=== PATIENT | female | born 1965 | race Caucasian/White ===

== ENCOUNTER → 2016-11-16 | Outpatient (CLI) | payer OTHER ==
--- NOTE | 2016-11-17 08:50 | Diagnostic Imaging Report ---
Bilateral screening mammogram The current study was also evaluated with a Computer Aided Detection (CAD) system. Indication: Screening. No current complaints stated on the questionnaire. COMPARISON: 04/06/16 FINDINGS: The breasts are composed of heterogenously dense parenchyma which may decrease mammographic sensitivity. There are asymmetries along the lateral aspect of the left cc projection, oval in shape and one measures 9 mm and one measures 6 mm in size. No definitive correlate on the MLO view. The right breast is stable. IMPRESSION: Asymmetries along the lateral aspect of the left breast more prominent compared to the prior studies. On the ultrasound of 10/24/2015 cluster of cysts were seen in the outer aspect of the left breast which could correlate to this abnormality. Examination with ultrasound at this point is recommended to reevaluate. BI-RADS 0. ACR BI-RADS Category 0: Incomplete. (Needs additional imaging evaluation). Result letter will be mailed to the patient. Note: At least 10% of breast cancer is not imaged by mammography. Dictated by: Dictated on workstation # [id number]
== END ==
LOC: RAD 11:21
PROVIDERS: ATTEND Family Medicine
DX: Z12.31 Encounter for screening mammogram for malignant neoplasm of breast (principal); N64.89 Other specified disorders of breast
CPT/HCPCS: 77067

== ENCOUNTER → 2016-12-02 | Outpatient (CLI) | payer OTHER ==
--- NOTE | 2016-12-02 13:41 | Diagnostic Imaging Report ---
EXAMINATION: Left breast ultrasound. INDICATION: Lateral left breast asymmetries. FINDINGS: The outer aspect of the left breast was scanned with simple and minimally complicated cysts seen. The predominant lesion is at the 2 o'clock zone 4 cm from the nipple measuring 8 x 6 x 8 mm with no suspicious lesion seen. When correlated with the mammographic findings, it appears to match the areas of abnormalities seen. No suspicious mass. IMPRESSION: Simple and minimally complicated cysts appear to explain the asymmetries seen in the outer aspect of the left breast. Annual screening mammography is recommended. ACR BI-RADS Category 2: Benign findings. Dictated by: Dictated on workstation # [id number]
== END ==
LOC: RAD 12:25
PROVIDERS: ATTEND Family Medicine
DX: N60.12 Diffuse cystic mastopathy of left breast (principal)
CPT/HCPCS: 76642

== ENCOUNTER → 2017-12-27 | Outpatient (CLI) | payer OTHER ==
--- NOTE | 2017-12-27 09:09 | Diagnostic Imaging Report ---
Indication: Routine screening. Comparison is made with prior mammogram from 11/16/2016 and 10/02/2015. 2-D and 3-D bilateral screening mammography was performed with CAD. Both breasts remain heterogeneously dense, limiting the sensitivity of mammography. The parenchymal pattern is stable. No dominant mass or malignant-appearing micro-calcifications are seen. The axilla are unremarkable. Impression: BI-RADS category one No mammographic features suspicious for malignancy are identified. ACR BI-RADS Category 1: Negative. Result letter will be mailed to the patient. Note: At least 10% of breast cancer is not imaged by mammography. Dictated by: Dictated on workstation # [id number]
== END ==
LOC: RAD 07:24
PROVIDERS: ATTEND Family Medicine
DX: Z12.31 Encounter for screening mammogram for malignant neoplasm of breast (principal)
CPT/HCPCS: 77067

== ENCOUNTER → 2019-09-18 | Outpatient (CLI) | payer OTHER ==
--- NOTE | 2019-09-18 10:47 | Diagnostic Imaging Report ---
INDICATION: Postmenopausal bleeding. TECHNIQUE: Pelvic sonography was performed with transabdominal and transvaginal views. FINDINGS: The uterus measures 7.3 x 3.3 x 3.7 cm. There is no myometrial mass. The uterus is somewhat anteverted. The endometrium measures 3 mm in thickness but does contain some fluid-like density, compatible with blood. Neither ovary could be visualized. There is no free fluid. IMPRESSION: Normal sized uterus with no myometrial mass. The endometrium does not appear appreciably thickened but does contain some linear fluid density areas which may represent blood given the patient's history. Neither ovary could be visualized. There is no free fluid. Dictated by: Dictated on workstation # [id number]
== END ==
LOC: RAD 08:52
PROVIDERS: ATTEND Family Medicine
DX: N93.9 Abnormal uterine and vaginal bleeding, unspecified (principal)
CPT/HCPCS: 76830; 76856

== ENCOUNTER → 2019-10-16 | Outpatient (CLI) | payer OTHER ==
--- NOTE | 2019-10-16 13:34 | Diagnostic Imaging Report ---
INDICATION: Pain in the outer left breast. COMPARISON: 01/02/2019 and 12/27/2017. TECHNIQUE: Unilateral left 2D and 3D diagnostic mammography was performed with CAD. FINDINGS: The left breast remains heterogeneously dense, limiting the sensitivity of mammography. No new mass or malignant appearing microcalcifications are seen. The left axilla is unremarkable. IMPRESSION: No mammographic features suspicious for malignancy are identified. Even so, directed sonographic interrogation of the area of pain in the outer left breast is recommended and will be performed today. ACR BI-RADS Category 0: Incomplete. (Needs additional imaging evaluation). Result letter will be mailed to the patient. Note: At least 10% of breast cancer is not imaged by mammography. Dictated by: Dictated on workstation # [id number]
--- NOTE | 2019-10-16 14:22 | Diagnostic Imaging Report ---
INDICATION: Left breast pain. Correlation is made with diagnostic mammogram earlier same day. Sonographic interrogation of the area of pain in the outer left breast was performed. This corresponds to the 3:00 location. No sonographic abnormality is detected. No solid or cystic mass is detected. IMPRESSION: BI-RADS Category 1 No sonographic abnormality is detected. ACR BI-RADS Category 1: Negative. Dictated by: Dictated on workstation # [id number]
== END ==
LOC: RAD 12:50
PROVIDERS: ATTEND Family Medicine
DX: N64.4 Mastodynia (principal)
CPT/HCPCS: 76642

== ENCOUNTER → 2020-02-12 | Outpatient (CLI) | payer OTHER ==
--- NOTE | 2020-02-12 12:23 | Diagnostic Imaging Report ---
INDICATION: Routine screening. COMPARISON: 01/02/2019 and 12/27/2017. TECHNIQUE: 2D and 3D bilateral screening mammography was performed with CAD. FINDINGS: Both breasts are heterogeneously dense, limiting the sensitivity of mammography. The parenchymal pattern is stable. No mass or malignant appearing microcalcifications are seen. The axillae are unremarkable. IMPRESSION: No mammographic features suspicious for malignancy are identified. ACR BI-RADS Category 1: Negative. Result letter will be mailed to the patient. Note: At least 10% of breast cancer is not imaged by mammography. Dictated by: Dictated on workstation # [id number]
== END ==
LOC: RAD 11:15
PROVIDERS: ATTEND Family Medicine
DX: Z12.31 Encounter for screening mammogram for malignant neoplasm of breast (principal)
CPT/HCPCS: 77063; 77067

== ENCOUNTER → 2021-03-10 | Outpatient (CLI) | payer OTHER ==
--- NOTE | 2021-03-10 19:40 | Diagnostic Imaging Report ---
INDICATION: Routine screening. COMPARISON is made with prior mammograms from 02/12/2020 and 10/17/2018. 2-D and 3-D bilateral screening mammography was performed with CAD. Both breasts are heterogeneously dense, limiting the sensitivity of mammography. The parenchymal pattern is stable. No mass or malignant-appearing microcalcifications are seen. Axillae are unremarkable. IMPRESSION: BI-RADS Category 1 No mammographic features suspicious for malignancy are identified. ACR BI-RADS Category 1: Negative. Result letter will be mailed to the patient. Note: At least 10% of breast cancer is not imaged by mammography. Dictated by: Dictated on workstation # [id number]
== END ==
LOC: RAD 15:00
PROVIDERS: ATTEND Family Medicine
DX: Z12.31 Encounter for screening mammogram for malignant neoplasm of breast (principal)
CPT/HCPCS: 77063; 77067

== ENCOUNTER → 2022-03-13 | Outpatient (CLI) | payer OTHER ==
--- NOTE | 2022-03-13 11:39 | Diagnostic Imaging Report ---
Indication: Routine screening. Comparison is made with prior mammograms from 03/10/2021 and 02/12/2020. 2-D and 3-D bilateral screening mammography was performed with CAD. Both breasts are heterogeneously dense, limiting the sensitivity of mammography. No mass or malignant-appearing microcalcifications are seen. Axillae are unremarkable. IMPRESSION: BI-RADS Category 1 No mammographic features suspicious for malignancy are identified. ACR BI-RADS Category 1: Negative. Result letter will be mailed to the patient. Note: At least 10% of breast cancer is not imaged by mammography. Dictated by: Dictated on workstation # [id number]
== END ==
LOC: RAD 10:01
PROVIDERS: ATTEND Family Medicine
DX: Z12.31 Encounter for screening mammogram for malignant neoplasm of breast (principal)
CPT/HCPCS: 77063; 77067

== ENCOUNTER 2023-01-18 07:05 | Emergency (ER) | payer OTHER ==
[~2023-01-18] VITALS: Ht 157 cm; Wt 61.0 kg
--- NOTE | 2023-01-18 07:29 | ED Chest Pain ---
General Chief Complaint: Chest Pain Stated Complaint: CHEST PAINS Nursing Triage Note: ARRIVED VIA AMB FROM HOME WITH COMPLAINTS OF ON AND OFF CHEST PAIN WITH BURPING X2 WEEKS. THIS MORNING THE PAIN WAS BETWEEN HER SHOULDER BLADES ET WRAPPING AROUND TO LEFT CHEST. Source: patient Exam Limitations: no limitations History of Present Illness Date Seen by Provider: Jan 18, 2023 Time Seen by Provider: 07:13 Initial Comments Here with report of left-sided chest pain that has been on and off over the last 2 weeks. States that it was worse this morning. Went to her shoulder. She has been using intermittent Prilosec and has taken some Tylenol with some relief. No significant family history for cardiac disease. Patient does not smoke. She is active as a email marketing manager. Does not remember any specific injury. States that her reflux has been worse recently and she has been using the Prilosec but has not used that her couple days. Denies breathing problems, fever, chills or other constitutional symptoms. Timing/Duration: changing over time, intermittent, other (6) Severity/Quality: moderate, aching, burning Location: shoulder, other (Chest) Radiation: shoulders, back Activities at Onset: none Prior CP/Workup: no prior cardiac workup Modifying Factors: improves with antacids, improves with rest ASA po JUNIOR PROGRAMMER ANALYST: No NTG SL JUNIOR PROGRAMMER ANALYST: No Associated Symptoms: No abdominal pain; back pain; No diaphoresis, No fatigue, No fever/chills; heartburn; No nausea/vomiting, No shortness of breath, No weakness Allergies and Home Medications Allergies Coded Allergies: No Known Drug Allergies (Unverified , 09/17/10) Patient Home Medication List Home Medication List Reviewed: Yes Review of Systems Review of Systems Constitutional: see HPI EENTM: No Symptoms Reported Respiratory: Denies Cough, Denies Shortness of Air Cardiovascular: Chest Pain; Denies Edema Gastrointestinal: See HPI Genitourinary: No Symptoms Reported Musculoskeletal: back pain; No neck pain Skin: no symptoms reported Past Hxnmgvb-Yfrywt-Vshihe Hx Patient Social History Tobacco Use?: No Substance use?: No Alcohol Use?: No Past Medical History Surgeries: Yes Gallbladder Respiratory: No Cardiac: No Neurological: No Gastrointestinal: Yes Gastroesophageal Reflux Musculoskeletal: No Family Medical History Reviewed Nursing Family Hx Cancer, Stroke Physical Exam Vital Signs Vital Signs - First Documented 01/18/23 07:10 Temp 36.2 Pulse 62 Resp 16 B/P (MAP) 164/81 (108) Pulse Ox 97 O2 Delivery Room Air Capillary Refill : Less Than 3 Seconds Height, Weight, BMI Height: 5'2.00" Weight: 140lbs. oz. 63.419435bn; 24.00 BMI Method: General Appearance: No Apparent Distress, WD/WN HEENT: PERRL/EOMI, Pharynx Normal Neck: Non Tender, Supple Respiratory: Lungs Clear, Normal Breath Sounds Cardiovascular: Regular Rate, Rhythm, No Edema, No Murmur Gastrointestinal: Non Tender, Soft Extremity: Normal Range of Motion, Non Tender Neurologic/Psychiatric: Alert, Oriented x3 Skin: Normal Color, Warm/Dry Progress/Results/Core Measures Results/Orders Lab Results Laboratory Tests Test 01/18/23 07:12 Range/Units White Blood Count 5.2 4.3-11.0 10^3/uL Red Blood Count 4.23 3.80-5.11 10^6/uL Hemoglobin 12.4 11.5-16.0 g/dL Hematocrit 38 35-52 % Mean Corpuscular Volume 89 80-99 fL Mean Corpuscular Hemoglobin 29 25-34 pg Mean Corpuscular Hemoglobin Concent 33 32-36 g/dL Red Cell Distribution Width 13.0 10.0-14.5 % Platelet Count 191 130-400 10^3/uL Mean Platelet Volume 9.6 9.0-12.2 fL Immature Granulocyte % (Auto) 0 % Neutrophils (%) (Auto) 50 42-75 % Lymphocytes (%) (Auto) 42 12-44 % Monocytes (%) (Auto) 7 0-12 % Eosinophils (%) (Auto) 1 0-10 % Basophils (%) (Auto) 0 0-10 % Neutrophils # (Auto) 2.6 1.8-7.8 10^3/uL Lymphocytes # (Auto) 2.2 1.0-4.0 10^3/uL Monocytes # (Auto) 0.4 0.0-1.0 10^3/uL Eosinophils # (Auto) 0.0 0.0-0.3 10^3/uL Basophils # (Auto) 0.0 0.0-0.1 10^3/uL Immature Granulocyte # (Auto) 0.0 0.0-0.1 10^3/uL Prothrombin Time 13.0 12.2-14.7 SEC INR Comment 1.0 0.8-1.4 Activated Partial Thromboplast Time 31 24-35 SEC D-Dimer 0.28 0.00-0.49 UG/ML Sodium Level 140 135-145 MMOL/L Potassium Level 4.3 3.6-5.0 MMOL/L Chloride Level 108 H 98-107 MMOL/L Carbon Dioxide Level 21 21-32 MMOL/L Anion Gap 11 5-14 MMOL/L Blood Urea Nitrogen 13 7-18 MG/DL Creatinine 0.94 0.60-1.30 MG/DL Estimat Glomerular Filtration Rate 70 BUN/Creatinine Ratio 14 Glucose Level 115 H 70-105 MG/DL Calcium Level 8.8 8.5-10.1 MG/DL Corrected Calcium 8.6 8.5-10.1 MG/DL Magnesium Level 1.8 1.6-2.4 MG/DL Total Bilirubin 0.4 0.1-1.0 MG/DL Aspartate Amino Transf (AST/SGOT) 25 5-34 U/L Alanine Aminotransferase (ALT/SGPT) 18 0-55 U/L Alkaline Phosphatase 65 40-136 U/L Myoglobin 33.8 10.0-92.0 NG/ML Troponin I < 0.028 <0.028 NG/ML Total Protein 6.9 6.4-8.2 GM/DL Albumin 4.2 3.2-4.5 GM/DL Lipase 28 8-78 U/L My Orders Orders - MONIQUE PACK MD Cbc With Automated Diff (01/18/23 07:23) Magnesium (01/18/23 07:23) Chest 1 View, Ap/Pa Only (01/18/23 07:23) Ekg Tracing (01/18/23 07:23) Comprehensive Metabolic Panel (01/18/23 07:23) Myoglobin Serum (01/18/23 07:23) Protime With Inr (01/18/23 07:23) Partial Thromboplastin Time (01/18/23 07:23) O2 (01/18/23 07:23) Monitor-Rhythm Ecg Trace Only (01/18/23 07:23) Lipid Panel (01/19/23 06:00) Ed Iv/Invasive Line Start (01/18/23 07:23) Lipase (01/18/23 07:23) Fibrin Degradation Products (01/18/23 07:23) Troponin I [place] (01/18/23 07:23) Aspirin Chewable Tablet (Aspirin Chewabl (01/18/23 07:30) Pantoprazole Injection (Protonix Injecti (01/18/23 07:30) Ketorolac Injection (Ketorolac Injection (01/18/23 08:17) Medications Given in ED Current Medications Medications Dose Ordered Sig/Renata Route Start Time Stop Time Status Last Admin Dose Admin Aspirin 324 mg ONCE ONCE PO 01/18/23 07:30 01/18/23 07:31 DC 01/18/23 07:30 324 MG Pantoprazole 40 mg ONCE ONCE IV 01/18/23 07:30 01/18/23 07:31 DC 01/18/23 07:30 40 MG Vital Signs/I&O 01/18/23 07:10 Temp 36.2 Pulse 62 Resp 16 B/P (MAP) 164/81 (108) Pulse Ox 97 O2 Delivery Room Air Blood Pressure Mean: 108 Progress Progress Note : Progress Note Evaluated. IV, labs including CBC, CMP, troponin, D-dimer and lipase, EKG and chest x-ray ordered. ASA 324 mg p.o. and Protonix 40 mg IV ordered. Monitor patient. Diagnosis includes cardiac event, reflux disease, musculoskeletal pain, pancreatitis, pulmonary embolism, lung abnormality 758: Chest x-ray reviewed by me and shows no obvious acute abnormality on my interpretation. CBC is normal. Coags are all and D-dimer is negative. Chemistries are pending. Monitor patient. 0815: CMP reviewed and grossly normal with negative troponin and normal lipase. Give Toradol 30 mg IV and monitor for a little bit with anticipation of discharge home. I will send a copy of the chart to Dr. Weller she has appointment on of this week. Patient feels comfortable going home. Discharged home with return precautions. Patient verbalized understanding of instructions and agreement with plan. 0851: Doing much better. Discharged home with return precautions. Patient verbalized understanding instructions and agreement with plan. Initial ECG Impression Date: Jan 18, 2023 Initial ECG Impression Time: 07:15 Initial ECG Rate: 59 Initial ECG Rhythm: Normal Sinus Initial ECG Impression: Normal Initial ECG Comparisson: No Previous ECG Available Comment Sinus rhythm with rate of 59 and normal axis. No evidence of ST elevation RI. Interpreted by me. Diagnostic Imaging Diagonstic Imaging: Xray Plain Films/CT/US/NM/MRI: chest Comments [facility], [facility]. [place], [place] NAME: JUAN JOSÉ BURROUGHS [facility] REC#: [id number] PT STATUS: REG ER : 1965 PHYSICIAN: MONIQUE PACK MD ADMIT DATE: 01/18/23/ER Signed Date of Exam:01/18/23 CHEST 1 VIEW, AP/PA ONLY Indication: Chest pain AP view of chest is obtained. COMPARISON: No previous study is available for comparison at this time. FINDINGS: Heart size and pulmonary vasculature are within normal limits, and the lungs are clear, bilaterally. IMPRESSION: Unremarkable chest. Dictated by: Dictated on workstation # [id number] Dict: 01/18/23 0754 Trans: 01/18/23 0755 [id number] Interpreted by: ILANA MCGUIRE MD Electronically signed by: ILANA MCGUIRE MD 01/18/23 0755 Departure Impression Primary Impression: Chest pain Qualified Codes: R07.9 - Chest pain, unspecified Additional Impressions: Acid reflux Qualified Codes: K21.9 - Gastro-esophageal reflux disease without esophagitis Musculoskeletal pain Disposition: 01 HOME, SELF-CARE Condition: Stable Departure-Patient Inst. Decision time for Depature: 08:19 Referrals: EULOGIO WELLER MD (PCP/Family) Primary Care Physician Patient Instructions: Chest Pain (DC), Acid Reflux and GERD in Adults (DC), Muscle and Bone Pain (DC) Add. Discharge Instructions: All discharge instructions reviewed with patient and/or family. Voiced understanding. Take Tylenol/acetaminophen 1000 mg every 6-8 hours as needed for pain. You may use [id number] Icy Hot with lidocaine patches or cream, Aspercreme with lidocaine patches or cream, Salonpas with lidocaine patches or cream or similar items to area of concern per package directions. Follow-up with your doctor this week for recheck and further evaluation as scheduled. Return for worse pain, fever, vomiting, weakness, breathing problems or other concerns as needed. Copy Copies To 1: EULOGIO WELLER MD, TIMOTHY D MD Jan 18, 2023 07:29
[2023-01-18 07:30] LABS: BASOPHILS % (AUTO) 0 % (0-10); EOSINOPHILS % (AUTO) 1 % (0-10); HEMATOCRIT 38 % (35-52); HEMOGLOBIN 12.4 g/dL (11.5-16.0); LYMPHOCYTES # (AUTO) 2.2 10^3/uL (1.0-4.0); LYMPHOCYTES % (AUTO) 42 % (12-44); MEAN CORPUSCULAR HEMOGLOBIN 29 pg (25-34); MEAN CORPUSCULAR HGB CONC 33 g/dL (32-36); MEAN CORPUSCULAR VOLUME 89 fL (80-99); MEAN PLATELET VOLUME 9.6 fL (9.0-12.2); MONOCYTES # (AUTO) 0.4 10^3/uL (0.0-1.0); MONOCYTES % (AUTO) 7 % (0-12); NEUTROPHILS # (AUTO) 2.6 10^3/uL (1.8-7.8); NEUTROPHILS % (AUTO) 50 % (42-75); PLATELET COUNT 191 10^3/uL (130-400); WHITE BLOOD COUNT 5.2 10^3/uL (4.3-11.0)
[2023-01-18] MEDS ORDERED: PANTOPRAZOLE INJECTION 40 MG VIAL IV ONE (07:30)
[2023-01-18] MEDS ORDERED: ASPIRIN 81 MG CHEWABLE TABLET PO ONE (07:30)
[2023-01-18 07:40] LABS: FIBRIN DEGRADATION PRODUCTS 0.28 UG/ML (0.00-0.49)
[2023-01-18 07:54] LABS: ALBUMIN 4.2 GM/DL (3.2-4.5); CHLORIDE 108 MMOL/L (98-107); POTASSIUM 4.3 MMOL/L (3.6-5.0); SODIUM 140 MMOL/L (135-145)
[2023-01-18 07:55] LABS: CALCIUM 8.8 MG/DL (8.5-10.1)
[2023-01-18 07:56] LABS: GLUCOSE 115 MG/DL (70-105); TOTAL PROTEIN 6.9 GM/DL (6.4-8.2)
--- NOTE | 2023-01-18 07:56 | Diagnostic Imaging Report ---
Indication: Chest pain AP view of chest is obtained. COMPARISON: No previous study is available for comparison at this time. FINDINGS: Heart size and pulmonary vasculature are within normal limits, and the lungs are clear, bilaterally. IMPRESSION: Unremarkable chest. Dictated by: Dictated on workstation # [id number]
[2023-01-18 07:57] LABS: CARBON DIOXIDE 21 MMOL/L (21-32)
[2023-01-18 07:58] LABS: BILIRUBIN,TOTAL 0.4 MG/DL (0.1-1.0)
[2023-01-18 07:59] LABS: ALKALINE PHOSPHATASE 65 U/L (40-136)
[2023-01-18 08:00] LABS: CREATININE SERUM 0.94 MG/DL (0.60-1.30); GFR ESTIMATED 70
[2023-01-18 08:01] LABS: BUN/CREATININE RATIO 14
[2023-01-18 08:03] LABS: ALANINE AMINOTRANSFERASE 18 U/L (0-55); MAGNESIUM 1.8 MG/DL (1.6-2.4)
[2023-01-18 08:04] LABS: LIPASE 28 U/L (8-78)
[2023-01-18] MEDS ORDERED: KETOROLAC INJ 30 MG/ML VIAL IVP STA (08:17)
[2023-01-18 08:57] VITALS: BP 132/77
== END 2023-01-18 08:57 | disposition home or self-care (01) ==
LOC: EDUNIT# 07:05 → ER 07:06
DX: K21.9 Gastro-esophageal reflux disease without esophagitis (principal); M79.18 Myalgia, other site; Z90.49 Acquired absence of other specified parts of digestive tract
CPT/HCPCS: 36415; 71045; 80053; 83690; 83735; 83874; 84484; 85025; 85379; 85610; 85730; 93005; 93041

== ENCOUNTER → 2023-03-19 | Outpatient (CLI) | payer OTHER ==
--- NOTE | 2023-03-19 12:42 | Diagnostic Imaging Report ---
INDICATION: Routine screening. Comparison is made with prior mammogram from 03/13/2022 and 03/10/2021. 2-D and 3-D bilateral screening mammography was performed with CAD. Both breasts are heterogeneously dense, limiting the sensitivity of mammography. The parenchymal pattern is stable. No mass or malignant-appearing microcalcifications are seen. Axillae are unremarkable. IMPRESSION: No mammographic features suspicious for malignancy are identified. ACR BI-RADS Category 1: Negative. Result letter will be mailed to the patient. Note: At least 10% of breast cancer is not imaged by mammography. BI-RADS Category 1 Dictated by: Dictated on workstation # [id number]
== END ==
LOC: RAD 09:26
PROVIDERS: ATTEND Family Medicine
DX: Z12.31 Encounter for screening mammogram for malignant neoplasm of breast (principal)
CPT/HCPCS: 77063; 77067